=== PATIENT | female | born 1950 | race Caucasian/White ===

== ENCOUNTER → 2017-08-16 | Outpatient (CLI) | payer MEDICARE, BC ==
[~2017-08-16] MED LIST: ACET-687 PO; DIAZ5TAB PO; HYDR-3101 PO; LISI1TAB7 PO; MELO15TA6 PO; METO-236 PO; RIVA10TA PO; SIMV10TA PO; TRAM50TA PO
--- NOTE | 2017-08-16 11:47 | DIREP ---
PROCEDURE:US BREAST-RT COMPARISON:[facility], , MAMMO BILATERAL DIAGNOSTIC, 08/16/2017, 10:45 AM. INDICATIONS:ABN MAMMO FINDINGS: Physician-directed ultrasound evaluation of the RIGHT breast and axilla was performed. The findings and recommendations were discussed with the patient. Sonographic evaluation is performed in the radial and antiradial planes. Please see separately dictated diagnostic mammogram from the same date regarding findings. CONCLUSION: Please see separately dictated diagnostic mammogram from the same date regarding findings, conclusions and recommendations. OVERALL FINAL ASSESSMENT: BI RADS 5 - Highly Suggestive of Malignancy - Appropriate Action Should Be Taken. Finding has a high probability of being malignant. RECOMMENDATIONS: ULTRASOUND-GUIDED CORE BIOPSY: RIGHT BREAST. Dictated by: Marcelo Head M.D. on 08/16/2017 at 11:33 AM
--- NOTE | 2017-08-20 16:47 | DIREP ---
PROCEDURE: MAMMO BILATERAL DIAGNOSTIC COMPARISON: [facility], US, US BREAST COMPLETE - RT, 08/16/2017 , 11:25 AM. INDICATIONS: DIAGNOSTIC MAMMO BREAST COMPOSITION: There are scattered areas of fibroglandular density. DIAGNOSTIC DIGITAL MAMMOGRAM: Right views [DIGITAL]: MLO, CC, and spot compression magnification (MLO and CC), laterally exaggerated CC Left views [DIGITAL]: MLO, CC, and laterally exaggerated CC Computer Assisted Detection (CAD) was utilized. In the right breast there is an irregular mass with spiculated margins at the 10:00 posterior position measuring 3.0 cm. Sonography was performed to further evaluate. No mass, microcalcifications architectural distortion seen in the left breast to suggest malignancy. PHYSICAL EXAMINATION: No complaints reported by patient BREAST SONOGRAM: Sonography of right breast and axilla was performed. Corresponding to mammographic abnormality is an irregular mass with spiculated margins taller than wide with posterior shadowing in the right breast at the 10:00 position 7 cm from the nipple. IMPRESSION: 1. Spiculated mass in the right breast seen by ultrasound and mammography is highly suspicious of malignancy. RECOMMENDATIONS: 1. Suspicious mass in the right breast for which ultrasound-guided core biopsy is recommended. 2. Findings and recommendations were discussed with the patient. 3. Findings and recommendations were discussed with referring clinician's (Dr. Vivian Leung) nurse [place] at 11:30 a.m. August 16, 2017, their office full arrange referral for biopsy of mass. OVERALL FINAL ASSESSMENT: BI-RADS 5 - Highly Suggestive of Malignancy - Appropriate action should be taken. Dictated by: Marcelo Head M.D. on 08/16/2017 at 11:46 AM LUIS
== END | disposition home or self-care (01) ==
LOC: RAD 09:52
PROVIDERS: ATTEND Specialist
DX: N63.10 Unspecified lump in the right breast, unspecified quadrant (principal)
CPT/HCPCS: 76641; 77065; G0206